=== PATIENT | male | born 1990 | race Caucasian/White ===

== ENCOUNTER 2017-10-06 01:43 | Emergency (ER) | payer SELFPAY ==
--- NOTE | 2017-10-06 01:50 | EDM.PDOC ---
ED HPI GENERAL MEDICAL PROBLEM - General Stated Complaint: MEDICAL CLEARANCE Time Seen by Provider: 10/06/17 01:48 - History of Present Illness INITIAL COMMENTS - FREE TEXT/NARRATIVE: HISTORY AND PHYSICAL: History of present illness: Patient is 27-year-old male presents in custody of law enforcement for medical clearance Review of systems: As per history of present illness and below otherwise all systems reviewed and negative. Past medical history: As per history of present illness and as reviewed below otherwise noncontributory. Surgical history: As per history of present illness and as reviewed below otherwise noncontributory. Social history: No reported history of drug or alcohol abuse. Family history: As per history of present illness and as reviewed below otherwise noncontributory. Physical exam: HEENT: Atraumatic, normocephalic, pupils reactive, negative for conjunctival pallor or scleral icterus, mucous membranes moist, throat clear, neck supple, nontender, trachea midline. Lungs: Clear to auscultation, breath sounds equal bilaterally, chest nontender. Heart: S1S2, regular, negative for clicks, rubs, or JVD. Abdomen: Soft, nondistended, nontender. Negative for masses or hepatosplenomegaly. Negative for costovertebral tenderness. Pelvis: Stable nontender. Genitourinary: Deferred. Rectal: Deferred. Extremities:, negative for cords or calf pain. Neurovascular unremarkable. Neuro: Awake, alert, oriented. Cranial nerves II through XII unremarkable. Cerebellum unremarkable. Motor and sensory unremarkable throughout. Exam nonfocal. Diagnostics: None Therapeutics: None Impression: #1 medically clear for incarceration Definitive disposition and diagnosis as appropriate pending reevaluation and review of above. - Related Data Allergies Allergy/AdvReac Type Severity Reaction Status Date / Time No Known Allergies Allergy Verified 10/06/17 01:49 Home Meds: Home Meds . [No Known Home Meds] 10/06/17 [History] ED ROS GENERAL - Review of Systems Review Of Systems: ROS reveals no pertinent complaints other than HPI. ED EXAM, GENERAL - Physical Exam Exam: See Below (See dictation) Departure - Departure Time of Disposition: 01:49 Disposition: Home, Self-Care 01 Condition: Good Clinical Impression: Medical clearance for incarceration - Discharge Information Referrals: PCP,None [Primary Care Provider] - Additional Instructions: The following information is given to patients seen in the emergency department who are being discharged to home. This information is to outline your options for follow-up care. We provide all patients seen in our emergency department with a follow-up referral. The need for follow-up, as well as the timing and circumstances, are variable depending upon the specifics of your emergency department visit. If you don't have a primary care physician on staff, we will provide you with a referral. We always advise you to contact your personal physician following an emergency department visit to inform them of the circumstance of the visit and for follow-up with them and/or the need for any referrals to a consulting specialist. The emergency department will also refer you to a specialist when appropriate. This referral assures that you have the opportunity for followup care with a specialist. All of these measure are taken in an effort to provide you with optimal care, which includes your followup. Under all circumstances we always encourage you to contact your private physician who remains a resource for coordinating your care. When calling for followup care, please make the office aware that this follow-up is from your recent emergency room visit. If for any reason you are refused follow-up, please contact the [facility] emergency department at and asked to speak to the emergency department charge nurse. Follow-up primary medical doctor 1-2 days return as needed as discussed
[2017-10-06] MEDS ORDERED: Octyl 2-Cyanoacrylate 1 Tube TOP ONE (01:51)
[2017-10-06] MEDS ORDERED: Octyl 2-Cyanoacrylate 1 Tube ONE (01:52)
== END 2017-10-06 02:01 | disposition home or self-care (01) ==
LOC: MW.ED 01:43
DX: Z02.89 Encounter for other administrative examinations (principal)
CPT/HCPCS: 99282; A9270; 99281

== ENCOUNTER 2018-03-09 17:46 | Emergency (ER) | payer OTHER ==
[2018-03-09] MEDS ORDERED: Ondansetron 4 MG/2 ML SDV IVPUSH ONE (18:13)
[2018-03-09] MEDS ORDERED: Ketorolac 30 MG/ML SDV IVPUSH ONE (18:13)
[2018-03-09] MEDS ORDERED: Sodium Chloride 0.9% 1,000 ML IV ONE (18:13)
--- NOTE | 2018-03-09 18:18 | EDM.PDOC ---
ED HPI GENERAL MEDICAL PROBLEM - General Chief Complaint: Abdominal Pain Stated Complaint: SPOKE TO NURSE Time Seen by Provider: 03/09/18 18:09 Source of Information: Reports: Patient History Limitations: Reports: No Limitations - History of Present Illness INITIAL COMMENTS - FREE TEXT/NARRATIVE: HISTORY AND PHYSICAL: History of present illness: Patient is a 27 year old male who presents to the emergency room with complaints of mid abdominal pain 4 hours. He states he has a sharp stabbing pain to his mid abdomen below the umbilicus. He states initially he had no nausea or vomiting but as I am assessing him he does have mild nausea. Prior to the sudden onset of abdominal pain he had been eating and drinking appropriately and felt well earlier this morning. He denies any fever, chills, chest pain, shortness of breath or cough. Denies any vomiting, diarrhea, constipation or dysuria. Denies any testicular pain, swelling or erythema. No concern of STDs. Review of systems: As per history of present illness and below otherwise all systems reviewed and negative. Past medical history: As per history of present illness and as reviewed below otherwise noncontributory. Surgical history: As per history of present illness and as reviewed below otherwise noncontributory. Social history: No reported history of drug or alcohol abuse. Family history: As per history of present illness and as reviewed below otherwise noncontributory. Physical exam: General: Well-developed and well-nourished 27 year old male. Alert and oriented. Nontoxic appearing and in no acute distress. HEENT: Atraumatic, normocephalic, pupils equal and reactive bilaterally, negative for conjunctival pallor or scleral icterus, mucous membranes moist, throat clear, neck supple, nontender, trachea midline. No drooling or trismus noted. No meningeal signs Lungs: Clear to auscultation, breath sounds equal bilaterally, chest nontender. Heart: S1S2, regular rate and rhythm without overt murmur Abdomen: Soft, nondistended, mild tenderness to the umbilicus. Negative for masses or hepatosplenomegaly. Negative for costovertebral tenderness. Pelvis: Stable nontender. Genitourinary: Deferred. Rectal: Deferred. Skin: Intact, warm, dry. No lesions or rashes noted. Extremities: Atraumatic, moves all extremities per self without difficulty or deficits, negative for cords or calf pain. Neurovascular unremarkable. Neuro: Awake, alert, oriented. Cranial nerves II through XII unremarkable. Cerebellum unremarkable. Motor and sensory unremarkable throughout. Exam nonfocal. Notes: CT shows that the appendix contains multiple small appendicoliths and is mildly dilated distally with possible early wall prominence. There is no inflammatory stranding around the appendix however. I did explain this to the patient and informed him that this could be early appendicitis. We discussed admission. He declines stating he would like to be discharged to home. He states his pain is a 1/10. We did review signs and symptoms that would prompt him to return to the emergency room. Patient voices understanding and is agreeable to plan of care. I did offer to prescribe Zofran for his nausea. He declined stating he hasn't had much nausea. I informed him that I did not want to give him a prescription for anything for pain at this time as I do not want to mask his symptoms if his abdominal pain should return. Denies any further questions or concerns at this time. Diagnostics: CBC, CMP, UA, amylase, lipase Therapeutics: IV fluid, Zofran, Toradol Prescription: None Impression: Abdominal pain Plan: 1. Small frequent sips of fluids to prevent dehydration. 2. Tylenol and ibuprofen as needed for pain management. 3. As we discussed your CT results were inconclusive. If your abdominal pain should worsen, nausea, fevers, chills, decreased appetite or any other symptoms that we reviewed should return or become bothersome - you need to return to the ED as we discussed. 4. Follow up with your primary care provider on Sunday. Return to the ED as needed as discussed. Definitive disposition and diagnosis as appropriate pending reevaluation and review of above. hypogastric Pain Score (Numeric/FACES): 10 - Related Data Allergies Allergy/AdvReac Type Severity Reaction Status Date / Time ibuprofen Allergy Swelling Verified 03/09/18 18:27 Home Meds: Home Meds . [No Known Home Meds] 10/06/17 [History] Past Medical History - Past Health History Medical/Surgical History: Denies Medical/Surgical History HEENT History: Reports: None Cardiovascular History: Reports: None Respiratory History: Reports: None Gastrointestinal History: Reports: None Genitourinary History: Reports: None Musculoskeletal History: Reports: None Neurological History: Reports: None Psychiatric History: Reports: None Endocrine/Metabolic History: Reports: None Hematologic History: Reports: None Immunologic History: Reports: None Oncologic (Cancer) History: Reports: None Dermatologic History: Reports: None - Infectious Disease History Infectious Disease History: Reports: None - Past Surgical History Head Surgeries/Procedures: Reports: None Social & Family History - Family History Family Medical History: Noncontributory - Tobacco Use Smoking Status *Q: Never Smoker - Recreational Drug Use Recreational Drug Use: No ED ROS GENERAL - Review of Systems Review Of Systems: ROS reveals no pertinent complaints other than HPI. ED EXAM, GI/ABD - Physical Exam Exam: See Below (See dictation) Course - Vital Signs Last Recorded V/S: Last Vital Signs Temp 97.5 F 03/09/18 19:56 Pulse 87 03/09/18 19:56 Resp 17 03/09/18 19:56 BP 115/74 03/09/18 19:56 Pulse Ox 98 03/09/18 19:56 - Orders/Labs/Meds Orders: Active Orders 24 hr Category Date Time Status Abdomen Pelvis w Cont [CT] Stat Exams 03/09/18 18:18 Taken Labs: Laboratory Tests 03/09/18 03/09/18 03/09/18 Range/Units 18:20 18:20 19:17 WBC 12.43 H (4.0-11.0) K/uL RBC 4.73 (4.50-5.90) M/uL Hgb 14.7 (13.0-17.0) g/dL Hct 42.7 (38.0-50.0) % MCV 90.3 (80.0-98.0) fL MCH 31.1 (27.0-32.0) pg MCHC 34.4 (31.0-37.0) g/dL RDW Std Deviation 41.9 (28.0-62.0) fl RDW Coeff of Kizzy 13 (11.0-15.0) % Plt Count 315 (150-400) K/uL MPV 10.40 (7.40-12.00) fL Neut % (Auto) 81.5 H (48.0-80.0) % Lymph % (Auto) 12.1 L (16.0-40.0) % [place] % (Auto) 6.0 (0.0-15.0) % Eos % (Auto) 0.2 (0.0-7.0) % Baso % (Auto) 0.2 (0.0-1.5) % Neut # (Auto) 10.1 H (1.4-5.7) K/uL Lymph # (Auto) 1.5 (0.6-2.4) K/uL [place] # (Auto) 0.8 (0.0-0.8) K/uL Eos # (Auto) 0.0 (0.0-0.7) K/uL Baso # (Auto) 0.0 (0.0-0.1) K/uL Nucleated RBC % 0.0 /100WBC Nucleated RBCs # 0 K/uL Sodium 137 (136-148) mmol/L Potassium 4.1 (3.5-5.1) mmol/L Chloride 101 (98-107) mmol/L Carbon Dioxide 28.5 (21.0-32.0) mmol/L BUN 15 (7.0-18.0) mg/dL Creatinine 1.0 (0.8-1.3) mg/dL Est Cr Clr Drug Dosing TNP Estimated GFR (MDRD) > 60.0 ml/min Glucose 94 (74-106) mg/dL Calcium 9.5 (8.5-10.1) mg/dL Total Bilirubin 0.4 (0.2-1.0) mg/dL AST 18 (15-37) IU/L ALT 23 (14-63) IU/L Alkaline Phosphatase 65 (46-116) U/L Total Protein 7.9 (6.4-8.2) g/dL Albumin 4.6 (3.4-5.0) g/dL Globulin 3.3 (2.0-3.5) g/dL Albumin/Globulin Ratio 1.4 (1.3-2.8) Amylase 98 (25-115) U/L Lipase 154 (73-393) U/L Urine Color YELLOW Urine Appearance CLEAR Urine pH 7.0 (5.0-8.0) Ur Specific [place] 1.020 (1.001-1.035) Urine Protein NEGATIVE (NEGATIVE) mg/dL Urine Glucose (UA) NEGATIVE (NEGATIVE) mg/dL Urine Ketones NEGATIVE (NEGATIVE) mg/dL Urine Occult Blood NEGATIVE (NEGATIVE) Urine Nitrite NEGATIVE (NEGATIVE) Urine Bilirubin NEGATIVE (NEGATIVE) Urine Urobilinogen 0.2 (<2.0) EU/dL Ur Leukocyte Esterase NEGATIVE (NEGATIVE) Urine RBC 0-1 (0-2/HPF) Urine WBC 0-1 (0-5/HPF) Ur Epithelial Cells RARE (NONE-FEW) Urine Bacteria FEW (NEGATIVE) Meds: Medications Discontinued Medications Generic Name Dose Route Start Last Admin Trade Name Kennyq PRN Reason Stop Dose Admin Sodium Chloride 1,000 mls @ 999 mls/hr 03/09/18 18:13 03/09/18 18:27 Normal Saline IV 03/09/18 19:13 999 mls/hr STAT ONE Administration Iopamidol 100 ml 03/09/18 19:45 Isovue Multipack-370 (76%) IVPUSH 03/09/18 19:46 ONETIME ONE Iopamidol 85 ml 03/09/18 19:51 03/09/18 19:51 Isovue Multipack-370 (76%) IVPUSH 03/09/18 19:52 85 ml ONETIME ONE Administration Ketorolac Tromethamine 30 mg 03/09/18 18:13 03/09/18 18:23 Toradol IVPUSH 03/09/18 18:14 30 mg ONETIME ONE Administration Morphine Sulfate 4 mg 03/09/18 18:53 03/09/18 19:01 Morphine IVPUSH 03/09/18 18:54 4 mg ONETIME ONE Administration Ondansetron HCl 4 mg 03/09/18 18:13 03/09/18 18:21 Zofran IVPUSH 03/09/18 18:14 4 mg ONETIME ONE Administration Departure - Departure Time of Disposition: 20:20 Disposition: Home, Self-Care 01 Clinical Impression: Abdominal pain Qualifiers: Abdominal location: lower abdomen, unspecified Qualified Code(s): R10.30 - Lower abdominal pain, unspecified - Discharge Information Instructions: Abdominal Pain, Adult, [id number] Referrals: PCP,None [Primary Care Provider] - Forms: ED Department Discharge Additional Instructions: The following information is given to patients seen in the emergency department who are being discharged to home. This information is to outline your options for follow-up care. We provide all patients seen in our emergency department with a follow-up referral. The need for follow-up, as well as the timing and circumstances, are variable depending upon the specifics of your emergency department visit. If you don't have a primary care physician on staff, we will provide you with a referral. We always advise you to contact your personal physician following an emergency department visit to inform them of the circumstance of the visit and for follow-up with them and/or the need for any referrals to a consulting specialist. The emergency department will also refer you to a specialist when appropriate. This referral assures that you have the opportunity for follow-up care with a specialist. All of these measure are taken in an effort to provide you with optimal care, which includes your follow-up. Under all circumstances we always encourage you to contact your private physician who remains a resource for coordinating your care. When calling for follow-up care, please make the office aware that this follow-up is from your recent emergency room visit. If for any reason you are refused follow-up, please contact the [facility] Emergency Department at and asked to speak to the emergency department charge nurse. [facility] [address] [place] [id number] 1. Small frequent sips of fluids to prevent dehydration. 2. Tylenol and ibuprofen as needed for pain management. 3. As we discussed, your CT results were inconclusive. If your abdominal pain should return, nausea, fevers, chills, decreased appetite or any other symptoms that we reviewed should return or become bothersome - you need to return to the ED as we discussed. 4. Follow up with your primary care provider on Sunday. Return to the ED as needed as discussed. - My Orders Last 24 Hours: My Active Orders 03/09/18 18:18 Abdomen Pelvis w Cont [CT] Stat - Assessment/Plan Last 24 Hours: My Active Orders 03/09/18 18:18 Abdomen Pelvis w Cont [CT] Stat
[2018-03-09] MEDS ORDERED: Morphine 2 MG/ML Syringe IVPUSH ONE (18:53)
[2018-03-09 18:56] LABS: CHLORIDE,CL 101 mmol/L (98-107); SODIUM,NA 137 mmol/L (136-148)
[2018-03-09] MEDS ORDERED: Iopamidol 755 MG/ML 200 ML Multipack Bottle IVPUSH ONE ×2 (19:45→19:51)
--- NOTE | 2018-03-11 13:37 | CT ---
EXAM DATE: 03/09/18 PATIENT'S AGE: 27 Patient: SHADIA ANDREWS Facility: [place], [place] Site . Site : 1990 Study: CT Abdomen/Pelvis W CONT [id number]/15/2018 7:42:59 PM Ordering Physician: Doctor Manzo Final Report: INDICATION: For 5 hours constant lower abdominal pain. TECHNIQUE: CT of abdomen pelvis performed after IV injection of 85 mL of Isovue-370. FINDINGS: No director talent acquisition view of the abdomen was sent for interpretation. Small cyst left hepatic lobe. Small lymph nodes in the abdominal retroperitoneum. Multiple small appendicoliths within the appendix. The distal appendix is mildly dilated and its wall may be slightly prominent however there is not definitive inflammatory soft tissue stranding about the appendix. The findings are not enough to suggest for diagnosis acute appendicitis by CT currently. If the patient`s pain is in the right pelvis or right lower quadrant or if it localizes to this area or worsens, repeat CT as early as later tonight or tomorrow could be performed to exclude appendicitis. Clinical and laboratory correlation would be suggested also. Remainder negative. IMPRESSION: 1. The appendix contains multiple small appendicoliths and is mildly dilated distally with possible mild early wall prominence. No inflammatory stranding around the appendix however. Clinical and laboratory correlation recommended. If the patient`s pain localizes to the right lower quadrant or becomes more severe, repeat CT as early as later tonight or tomorrow could be performed to ensure the findings are not related to early appendicitis with the findings not being prominent enough to suggest or diagnose by CT currently. Other findings as above. Please note that all CT scans at this facility use dose modulation, iterative reconstruction, and/or weight-based dosing when appropriate to reduce radiation dose to as low as reasonably achievable. Dictated by Hermilo Vasquez MD @ Mar 09 2018 8:02PM (Electronic Signature) Report Signed by Proxy. MAINE
== END 2018-03-09 20:40 | disposition home or self-care (01) ==
LOC: MW.ED 17:46
DX: R10.30 Lower abdominal pain, unspecified (principal); Z88.8 Allergy status to other drugs, medicaments and biological substances
CPT/HCPCS: 36415; 74177; 80053; 81001; 82150; 83690; 85025; 96361; 96374; 96375; 99284; J1885; J2270; J2405; J7040; Q9967

== ENCOUNTER 2018-03-10 05:32 | Observation (INO) | payer OTHER ==
--- NOTE | 2018-03-10 05:41 | EDM.PDOC ---
ED HPI GENERAL MEDICAL PROBLEM - General Stated Complaint: STOMACH PAINS Time Seen by Provider: 03/10/18 05:36 - History of Present Illness INITIAL COMMENTS - FREE TEXT/NARRATIVE: HISTORY AND PHYSICAL: History of present illness: The patient is a 27 y/o male who was seen here earlier this evening with complaints of mid abdominal pain for 4 hours associated with some nausea but no vomiting or diarrhea. On that ED visit he had a full lab workup with CBC CMP amylase lipase as well as the CT scan of his abdomen and pelvis. His white cell count was mildly elevated at 12.43 but the remainder of his lab tests were normal and a CT scan indicated the appendix had multiple small appendicoliths and was mildly dilated distally with possible early wall prominence. There was no inflammatory stranding around the appendix so it was not felt that this was acute appendicitis by CT. The test results were discussed with the patient and he was offered observation admission and he declined at the time. He said that he felt improved with the medications he was given. He also refused any nausea meds prior to discharge. The patient says that when he left here he did feel much improved and then he got home and last had some juice around 11 PM but did not eat any solids. He did not have much of an appetite. He says the pain returned several hours after he went home and he has been tossing and turning with the discomfort but has not had a fever vomiting or diarrhea. Says he cannot get comfortable. His last bowel movement was yesterday and it was normal. He says that the pain is now more on the right lower quadrant area and when he presented to triage he was hunched over due to the discomfort. The patient says that this is significantly different than when he left and even when he first presented earlier on his first visit. She denies any pain in the testicles and no flank pain and no back pain or urinary complaints. Nursing who cared for him at the end of his last ED visit is also here in the ED with me now and says that his presentation is significantly different than when she was caring for him prior to discharge earlier this evening. Review of systems: As per history of present illness and below otherwise all systems reviewed and negative. Past medical history: As per history of present illness and as reviewed below otherwise noncontributory. Surgical history: As per history of present illness and as reviewed below otherwise noncontributory. Social history: No reported history of drug or alcohol abuse. Family history: As per history of present illness and as reviewed below otherwise noncontributory. Physical exam: general: Well-developed well-nourished man who is nontoxic and looks uncomfortable in the ED. I saw him as he was registering in triage and he was bent over the desk due to discomfort. He has difficulty with the exam due to the discomfort he is in. Vital signs noted by me HEENT: Atraumatic, normocephalic, , negative for conjunctival pallor or scleral icterus, mucous membranes moist, throat clear, neck supple, nontender, trachea midline. Lungs: Clear to auscultation, breath sounds equal bilaterally, chest nontender. Heart: S1S2, regular rate and rhythm no overt murmurs Abdomen: Soft, nondistended, bowel sounds are very hypoactive. Negative for masses or hepatosplenomegaly. Patient has diffuse abdominal tenderness more localized in the right lower quadrant where he does have some voluntary guarding and some rebound. He does exhibit Rovsing sign as well as a positive obturator sign. He has no left upper or left lower quadrant tenderness specifically in those regions. Pelvis: Stable nontender. Genitourinary: Deferred. Rectal: Deferred. Extremities: Atraumatic, full range of motion without defects or deficits Neurovascular unremarkable. Neuro: Awake, alert, oriented. Cranial nerves II through XII unremarkable. Cerebellum unremarkable. Motor and sensory unremarkable throughout. Exam nonfocal. Diagnostics: CBC CMP lipase H. pylori Therapeutics: IV fluids Zofran Toradol morphine Zosyn [id number]: Case was discussed with Dr. Quintanilla who would like the patient to be admitted to the hospital with lactated Ringer's IV fluid maintenance and Zosyn to be given. She will come and see the patient later this morning and evaluate for probable surgery for appendectomy. The patient is aware of this conversation and the care plan and is agreeable. He says his pain is much improved after the medications but is not completely gone and every time he moves or coughs he feels the pain is worse Impression: Recurrent persistent abdominal pain, probable appendicitis Definitive disposition and diagnosis as appropriate pending reevaluation and review of above. abdominal Pain Score (Numeric/FACES): 10 - Related Data Allergies Allergy/AdvReac Type Severity Reaction Status Date / Time ibuprofen Allergy Swelling Verified 03/09/18 18:27 soda pamela Allergy Hives Uncoded 03/10/18 05:44 Home Meds: Home Meds . [No Known Home Meds] 10/06/17 [History] Past Medical History - Past Health History Medical/Surgical History: Denies Medical/Surgical History HEENT History: Reports: None Cardiovascular History: Reports: None Respiratory History: Reports: None Gastrointestinal History: Reports: None Genitourinary History: Reports: None Musculoskeletal History: Reports: None Neurological History: Reports: None Psychiatric History: Reports: None Endocrine/Metabolic History: Reports: None Hematologic History: Reports: None Immunologic History: Reports: None Oncologic (Cancer) History: Reports: None Dermatologic History: Reports: None - Infectious Disease History Infectious Disease History: Reports: None - Past Surgical History Head Surgeries/Procedures: Reports: None Social & Family History - Family History Family Medical History: Noncontributory ED ROS GENERAL - Review of Systems Review Of Systems: ROS reveals no pertinent complaints other than HPI. ED EXAM, GENERAL - Physical Exam Exam: See Below (See dictation) Course - Vital Signs Last Recorded V/S: Last Vital Signs Temp 36.5 C 03/10/18 06:15 Pulse 72 03/10/18 06:15 Resp 18 03/10/18 06:15 BP 135/78 03/10/18 06:15 Pulse Ox 98 03/10/18 06:15 - Orders/Labs/Meds Orders: Active Orders 24 hr Category Date Time Status Patient Status [ADT] Stat ADT 03/10/18 06:22 Ordered COMPREHENSIVE METABOLIC PN,CMP [CHEM] Stat Lab 03/10/18 05:45 Received HELICOBACTER PYLORI AB IGG [CHEM] Stat Lab 03/10/18 05:45 Received LIPASE [CHEM] Stat Lab 03/10/18 05:45 Received Lactated Ringers @ 125 MLS/HR(1,000ml) Med 03/10/18 06:30 Ordered Lactated Ringers [Ringers, Lactated] 1,000 ml IV ASDIRECTED Piperacillin/Tazobactam [Piperacil-Tazobact] 3.375 gm Med 03/10/18 06:22 Ordered Sodium Chloride 0.9% [Normal Saline] 50 ml IV ONETIME Sodium Chloride 0.9% [Normal Saline] 1,000 ml Med 03/10/18 05:42 Active IV STAT Sodium Chloride 0.9% [Saline Flush] Med 03/10/18 05:42 Active 10 ml FLUSH ASDIRECTED PRN Sodium Chloride 0.9% [Saline Flush] Med 03/10/18 05:42 Active 2.5 ml FLUSH ASDIRECTED PRN Saline Lock Insert [OM.PC] Stat Oth 03/10/18 05:41 Ordered Medication Orders Sodium Chloride (Normal Saline) 1,000 mls @ 999 mls/hr IV STAT ONE Stop: 03/10/18 06:42 Last Admin: 03/10/18 05:50 Dose: 999 mls/hr Lactated Ringer's (Ringers, Lactated) 1,000 mls @ 125 mls/hr IV ASDIRECTED ROBERT Piperacillin Sod/Tazobactam (Sod 3.375 gm/ Sodium Chloride) 50 mls @ 100 mls/ hr IV ONETIME ONE Stop: 03/10/18 06:51 Sodium Chloride (Saline Flush) 10 ml FLUSH ASDIRECTED PRN PRN Reason: Keep Vein Open Sodium Chloride (Saline Flush) 2.5 ml FLUSH ASDIRECTED PRN PRN Reason: Keep Vein Open Labs: Laboratory Tests 03/10/18 03/10/18 Range/Units 05:45 05:45 WBC 13.97 H (4.0-11.0) K/uL RBC 4.88 (4.50-5.90) M/uL Hgb 15.0 (13.0-17.0) g/dL Hct 43.2 (38.0-50.0) % MCV 88.5 (80.0-98.0) fL MCH 30.7 (27.0-32.0) pg MCHC 34.7 (31.0-37.0) g/dL RDW Std Deviation 40.8 (28.0-62.0) fl RDW Coeff of Kizzy 13 (11.0-15.0) % Plt Count 207 (150-400) K/uL MPV 10.50 (7.40-12.00) fL Neut % (Auto) 79.3 (48.0-80.0) % Lymph % (Auto) 11.0 L (16.0-40.0) % Ward % (Auto) 9.2 (0.0-15.0) % Eos % (Auto) 0.4 (0.0-7.0) % Baso % (Auto) 0.1 (0.0-1.5) % Neut # (Auto) 11.1 H (1.4-5.7) K/uL Lymph # (Auto) 1.5 (0.6-2.4) K/uL Ward # (Auto) 1.3 H (0.0-0.8) K/uL Eos # (Auto) 0.1 (0.0-0.7) K/uL Baso # (Auto) 0.0 (0.0-0.1) K/uL Nucleated RBC % 0.0 /100WBC Nucleated RBCs # 0 K/uL Lactate 1.9 (0.20-2.00) mmol/L Meds: Medications Generic Name Dose Route Start Last Admin Trade Name Freq PRN Reason Stop Dose Admin Sodium Chloride 1,000 mls @ 999 mls/hr 03/10/18 05:42 03/10/18 05:50 Normal Saline IV 03/10/18 06:42 999 mls/hr STAT ONE Administration Lactated Ringer's 1,000 mls @ 125 mls/hr 03/10/18 06:30 Ringers, Lactated IV ASDIRECTED ROBERT Piperacillin Sod/Tazobactam 50 mls @ 100 mls/hr 03/10/18 06:22 Sod 3.375 gm/ Sodium Chloride IV 03/10/18 06:51 ONETIME ONE Sodium Chloride 10 ml 03/10/18 05:42 Saline Flush FLUSH ASDIRECTED PRN Keep Vein Open Sodium Chloride 2.5 ml 03/10/18 05:42 Saline Flush FLUSH ASDIRECTED PRN Keep Vein Open Discontinued Medications Generic Name Dose Route Start Last Admin Trade Name Freq PRN Reason Stop Dose Admin Ketorolac Tromethamine 30 mg 03/10/18 05:42 03/10/18 05:57 Toradol IVPUSH 03/10/18 05:43 30 mg ONETIME ONE Administration Morphine Sulfate 4 mg 03/10/18 05:42 03/10/18 05:57 Morphine IVPUSH 03/10/18 05:43 4 mg ONETIME ONE Administration Ondansetron HCl 4 mg 03/10/18 05:42 03/10/18 05:57 Zofran IVPUSH 03/10/18 05:43 4 mg ONETIME ONE Administration Departure - Departure Time of Disposition: 06:26 Disposition: Refer to Observation Condition: Good Clinical Impression: Abdominal pain Qualifiers: Abdominal location: right lower quadrant Qualified Code(s): R10.31 - Right lower quadrant pain Appendicitis Qualifiers: Appendicitis type: unspecified Qualified Code(s): K37 - Unspecified appendicitis - Discharge Information Referrals: PCP,None [Primary Care Provider] - - My Orders Last 24 Hours: My Active Orders 03/10/18 05:41 Saline Lock Insert [OM.PC] Stat 03/10/18 05:42 Sodium Chloride 0.9% [Normal Saline] 1,000 ml IV STAT Sodium Chloride 0.9% [Saline Flush] 10 ml FLUSH ASDIRECTED PRN Sodium Chloride 0.9% [Saline Flush] 2.5 ml FLUSH ASDIRECTED PRN 03/10/18 05:45 COMPREHENSIVE METABOLIC PN,CMP [CHEM] Stat HELICOBACTER PYLORI AB IGG [CHEM] Stat LIPASE [CHEM] Stat 03/10/18 06:22 Patient Status [ADT] Stat Piperacillin/Tazobactam [Piperacil-Tazobact] 3.375 gm Sodium Chloride 0.9% [ Normal Saline] 50 ml IV ONETIME 03/10/18 06:30 Lactated Ringers @ 125 MLS/HR(1,000ml) Lactated Ringers [Ringers, Lactated] 1, 000 ml IV ASDIRECTED - Assessment/Plan Last 24 Hours: My Active Orders 03/10/18 05:41 Saline Lock Insert [OM.PC] Stat 03/10/18 05:42 Sodium Chloride 0.9% [Normal Saline] 1,000 ml IV STAT Sodium Chloride 0.9% [Saline Flush] 10 ml FLUSH ASDIRECTED PRN Sodium Chloride 0.9% [Saline Flush] 2.5 ml FLUSH ASDIRECTED PRN 03/10/18 05:45 COMPREHENSIVE METABOLIC PN,CMP [CHEM] Stat HELICOBACTER PYLORI AB IGG [CHEM] Stat LIPASE [CHEM] Stat 03/10/18 06:22 Patient Status [ADT] Stat Piperacillin/Tazobactam [Piperacil-Tazobact] 3.375 gm Sodium Chloride 0.9% [ Normal Saline] 50 ml IV ONETIME 03/10/18 06:30 Lactated Ringers @ 125 MLS/HR(1,000ml) Lactated Ringers [Ringers, Lactated] 1, 000 ml IV ASDIRECTED
[2018-03-10] MEDS ORDERED: Ondansetron 4 MG/2 ML SDV IVPUSH ONE (05:42)
[2018-03-10] MEDS ORDERED: Morphine 2 MG/ML Syringe IVPUSH ONE (05:42)
[2018-03-10] MEDS ORDERED: Sodium Chloride 0.9% 2.5 ML Syringe FLUSH PRN (05:42)
[2018-03-10] MEDS ORDERED: Ketorolac 30 MG/ML SDV IVPUSH ONE (05:42)
[2018-03-10] MEDS ORDERED: Sodium Chloride 0.9% 1,000 ML IV ONE (05:42)
[2018-03-10] MEDS ORDERED: Sodium Chloride 0.9% 10 ML Syringe FLUSH PRN (05:42)
[2018-03-10] MEDS ORDERED: Piperacillin/Tazobactam 3.375 GM in Sodium Chloride 0.9% 50 ML IV ONE ×2 (06:22→15:00)
[2018-03-10 06:27] LABS: CHLORIDE,CL 102 mmol/L (98-107); SODIUM,NA 137 mmol/L (136-148)
[2018-03-10] MEDS ORDERED: HYDROmorphone 1 MG/ML Syringe IVPUSH ONE (06:47)
[2018-03-10] MEDS: Lactated Ringers 1,000 ML IV SCH ×2 (07:28→15:29)
[2018-03-10] MEDS ORDERED: Ondansetron 4 MG/2 ML SDV IVPUSH PRN (08:57)
--- NOTE | 2018-03-10 09:05 | PCM.HP ---
H&P History of Present Illness - General Date of Service: 03/10/18 Admit Problem/Dx: Admission Diagnosis/Problem Admission Diagnosis/Problem Abdominal pain Source of Information: Patient History Limitations: Reports: No Limitations - History of Present Illness Initial Comments - Free Text/Narative: Patient is a 27 year old male who developed generalized abdominal pain last evening associated with malaise and nausea. He presented to the ED. His WBC was normal. CT scan of the abdomen showed appendicoliths in the appendix but no gross enlargement or inflammation. He was given the option to be observed overnight or go home. He received pain medication and felt better so he went home. Several hours later his pain became more severe and migrated to the RLQ. The patient represented to the ER. He had a WBC now of 13.5K with RLQ rebound and guarding. He last ate yesterday. abdominal Pain Score (Numeric/FACES): 6 - Related Data Allergies/Adverse Reactions: Allergies Allergy/AdvReac Type Severity Reaction Status Date / Time ibuprofen Allergy Swelling Verified 03/09/18 18:27 soda pamela Allergy Hives Uncoded 03/10/18 05:44 Home Medications: Home Meds . [No Known Home Meds] 10/06/17 [History] Past Medical History - Past Health History Medical/Surgical History: Denies Medical/Surgical History HEENT History: Reports: None Cardiovascular History: Reports: None Respiratory History: Reports: None Other Respiratory History: recent occasional episodes of SOB and coughing but never diagnosed with any respiratory issues Gastrointestinal History: Reports: None Genitourinary History: Reports: None Musculoskeletal History: Reports: None Neurological History: Reports: None Psychiatric History: Reports: None Endocrine/Metabolic History: Reports: None Hematologic History: Reports: None Immunologic History: Reports: None Oncologic (Cancer) History: Reports: None Dermatologic History: Reports: None - Infectious Disease History Infectious Disease History: Reports: Chicken Pox - Past Surgical History Head Surgeries/Procedures: Reports: None Social & Family History - Family History Family Medical History: Noncontributory - Tobacco Use Smoking Status *Q: Never Smoker Second Hand Smoke Exposure: No - Caffeine Use Caffeine Use: Reports: Coffee, Energy Drinks - Recreational Drug Use Recreational Drug Use: No H&P Review of Systems - Review of Systems: Review Of Systems: ROS reveals no pertinent complaints other than HPI. Exam - Exam Exam: See Below - Vital Signs Vital Signs: Last Vital Signs Temp 37.0 C 03/10/18 08:00 Pulse 75 03/10/18 08:00 Resp 22 H 03/10/18 08:00 BP 132/79 03/10/18 08:00 Pulse Ox 96 03/10/18 08:00 Weight: 82.27 kg - Exam General: Alert, Oriented, Mild Distress HEENT: Conjunctiva Clear, Mucosa Moist & [place], Posterior Pharynx Clear Lungs: Clear to Auscultation, Normal Respiratory Effort Cardiovascular: Regular Rate, Regular Rhythm GI/Abdominal Exam: Soft, No Distention, Guarding (RLQ), Rebound (RLQ), Tender ( RLQ) Back Exam: Normal Inspection Extremities: Normal Inspection, Normal Range of Motion - Patient Data Lab Results Last 24 hrs: Laboratory Results - last 24 hr 03/10/18 03/10/18 03/10/18 Range/Units 05:45 05:45 05:45 WBC 13.97 H (4.0-11.0) K/uL RBC 4.88 (4.50-5.90) M/uL Hgb 15.0 (13.0-17.0) g/dL Hct 43.2 (38.0-50.0) % MCV 88.5 (80.0-98.0) fL MCH 30.7 (27.0-32.0) pg MCHC 34.7 (31.0-37.0) g/dL RDW Std Deviation 40.8 (28.0-62.0) fl RDW Coeff of Kizzy 13 (11.0-15.0) % Plt Count 207 (150-400) K/uL MPV 10.50 (7.40-12.00) fL Neut % (Auto) 79.3 (48.0-80.0) % Lymph % (Auto) 11.0 L (16.0-40.0) % [place] % (Auto) 9.2 (0.0-15.0) % Eos % (Auto) 0.4 (0.0-7.0) % Baso % (Auto) 0.1 (0.0-1.5) % Neut # (Auto) 11.1 H (1.4-5.7) K/uL Lymph # (Auto) 1.5 (0.6-2.4) K/uL [place]verse # (Auto) 1.3 H (0.0-0.8) K/uL Eos # (Auto) 0.1 (0.0-0.7) K/uL Baso # (Auto) 0.0 (0.0-0.1) K/uL Nucleated RBC % 0.0 /100WBC Nucleated RBCs # 0 K/uL Lactate 1.9 (0.20-2.00) mmol/L Sodium 137 (136-148) mmol/L Potassium 4.3 (3.5-5.1) mmol/L Chloride 102 (98-107) mmol/L Carbon Dioxide 25.0 (21.0-32.0) mmol/L BUN 11 (7.0-18.0) mg/dL Creatinine 1.0 (0.8-1.3) mg/dL Est Cr Clr Drug Dosing 122.87 mL/min Estimated GFR (MDRD) > 60.0 ml/min Glucose 101 (74-106) mg/dL Calcium 9.5 (8.5-10.1) mg/dL Total Bilirubin 0.9 (0.2-1.0) mg/dL AST 19 (15-37) IU/L ALT 22 (14-63) IU/L Alkaline Phosphatase 71 (46-116) U/L Total Protein 7.5 (6.4-8.2) g/dL Albumin 4.3 (3.4-5.0) g/dL Globulin 3.2 (2.0-3.5) g/dL Albumin/Globulin Ratio 1.3 (1.3-2.8) Lipase 85 (73-393) U/L H. pylori IgG Antibody (NEG) 03/10/18 Range/Units 05:45 WBC (4.0-11.0) K/uL RBC (4.50-5.90) M/uL Hgb (13.0-17.0) g/dL Hct (38.0-50.0) % MCV (80.0-98.0) fL MCH (27.0-32.0) pg MCHC (31.0-37.0) g/dL RDW Std Deviation (28.0-62.0) fl RDW Coeff of Kizzy (11.0-15.0) % Plt Count (150-400) K/uL MPV (7.40-12.00) fL Neut % (Auto) (48.0-80.0) % Lymph % (Auto) (16.0-40.0) % Traverse % (Auto) (0.0-15.0) % Eos % (Auto) (0.0-7.0) % Baso % (Auto) (0.0-1.5) % Neut # (Auto) (1.4-5.7) K/uL Lymph # (Auto) (0.6-2.4) K/uL Traverse # (Auto) (0.0-0.8) K/uL Eos # (Auto) (0.0-0.7) K/uL Baso # (Auto) (0.0-0.1) K/uL Nucleated RBC % /100WBC Nucleated RBCs # K/uL Lactate (0.20-2.00) mmol/L Sodium (136-148) mmol/L Potassium (3.5-5.1) mmol/L Chloride (98-107) mmol/L Carbon Dioxide (21.0-32.0) mmol/L BUN (7.0-18.0) mg/dL Creatinine (0.8-1.3) mg/dL Est Cr Clr Drug Dosing mL/min Estimated GFR (MDRD) ml/min Glucose (74-106) mg/dL Calcium (8.5-10.1) mg/dL Total Bilirubin (0.2-1.0) mg/dL AST (15-37) IU/L ALT (14-63) IU/L Alkaline Phosphatase (46-116) U/L Total Protein (6.4-8.2) g/dL Albumin (3.4-5.0) g/dL Globulin (2.0-3.5) g/dL Albumin/Globulin Ratio (1.3-2.8) Lipase (73-393) U/L H. pylori IgG Antibody NEGATIVE (NEG) Result Diagrams: 03/10/18 05:45 03/10/18 05:45 - Problem List (1) Appendicitis SNOMED Code(s): 93759281 ICD Code: K37 - UNSPECIFIED APPENDICITIS Status: Acute Current Visit: Yes Qualifiers: Appendicitis type: unspecified Qualified Code(s): K37 - Unspecified appendicitis Problem List Initiated/Reviewed/Updated: Yes Orders Last 24hrs: Active Orders 24 hr Category Date Time Status Patient Status [ADT] Stat ADT 03/10/18 06:22 Active Influenza Vaccine Charge [RC] .DISCHARGE Care 03/10/18 08:58 Active HYDROmorphone [Dilaudid] Med 03/10/18 08:56 Ordered 0.5 mg IVPUSH Q1H PRN Lactated Ringers [Ringers, Lactated] 1,000 ml Med 03/10/18 06:30 Active IV ASDIRECTED Ondansetron [Zofran] Med 03/10/18 08:57 Ordered 4 mg IVPUSH Q6H PRN Pharmacy to Dose [Pharmacy to Dose - InFluenza Vaccine] Med 03/10/18 08:58 Once 1 each IM ONETIME ONE Sodium Chloride 0.9% [Saline Flush] Med 03/10/18 05:42 Active 10 ml FLUSH ASDIRECTED PRN Sodium Chloride 0.9% [Saline Flush] Med 03/10/18 05:42 Active 2.5 ml FLUSH ASDIRECTED PRN Saline Lock Insert [OM.PC] Stat Oth 03/10/18 05:41 Ordered Medication Orders Hydromorphone HCl (Dilaudid) 0.5 mg IVPUSH Q1H PRN PRN Reason: Pain Lactated Ringer's (Ringers, Lactated) 1,000 mls @ 125 mls/hr IV ASDIRECTED ROBERT Last Admin: 03/10/18 07:28 Dose: 125 mls/hr Ondansetron HCl (Zofran) 4 mg IVPUSH Q6H PRN PRN Reason: Nausea/Vomiting Sodium Chloride (Saline Flush) 10 ml FLUSH ASDIRECTED PRN PRN Reason: Keep Vein Open Sodium Chloride (Saline Flush) 2.5 ml FLUSH ASDIRECTED PRN PRN Reason: Keep Vein Open Assessment/Plan Comment:: Patient is a 27 year old male with acute appendicitis. I explained the pathophysiology of the disease. We discussed the need for an appendectomy. I explained but the open and laparoscopic approaches. I will attempt this laparoscopically but should I be unable to perform this safely I will convert to open. We discussed the expected perioperative course as well as the risks including bleeding infection or damage to surrounding structures. The patient verbalized understanding and wishes to proceed.
[2018-03-10] MEDS: HYDROmorphone 1 MG/ML Syringe IVPUSH PRN ×5 (09:07→18:57)
[2018-03-10] MEDS ORDERED: Propofol 200 MG/20 ML SDV ONE (09:36)
[2018-03-10] MEDS ORDERED: fentaNYL 250 MCG/5 ML SDV ONE (09:36)
[2018-03-10] MEDS ORDERED: Midazolam 1 MG/ML 2 ML SDV ONE (09:36)
[2018-03-10] MEDS ORDERED: Bupivacaine 0.5% 30 ML SDV ONE (09:40)
[2018-03-10] MEDS ORDERED: Ondansetron 4 MG/2 ML SDV ONE (09:41)
[2018-03-10] MEDS ORDERED: Rocuronium 10 MG/ML 10 ML Syringe ONE (09:41)
[2018-03-10] MEDS ORDERED: Succinylcholine 200 MG/10 ML MDV ONE (09:41)
--- NOTE | 2018-03-10 09:52 | PCM.PREANE ---
Preanesthetic Assessment - Anesthesia/Transfusion/Family Hx Anesthesia History: No Prior Anesthesia Family History of Anesthesia Reaction: No Transfusion History: No Prior Transfusion(s) Intubation History: Unknown - Review of Systems General: Appetite Pulmonary: No Symptoms Cardiovascular: No Symptoms Gastrointestinal: Abdominal Pain, Decreased Appetite, Nausea Neurological: No Symptoms - Physical Assessment NPO Status Date: 03/10/18 (2400) O2 Sat by Pulse Oximetry: 96 Respiratory Rate: 22 Vital Signs: Last Vital Signs Temp 98.6 F 03/10/18 08:00 Pulse 75 03/10/18 08:00 Resp 22 H 03/10/18 08:00 BP 132/79 03/10/18 08:00 Pulse Ox 96 03/10/18 08:00 Height: 6 ft Weight: 82.27 kg ASA Class: 1E Mental Status: Alert & Oriented x3 Airway Class: Mallampati = 2 Dentition: Reports: Normal Dentition Thyro-Mental Finger Breadths: 3 Mouth Opening Finger Breadths: 3 ROM/Head Extension: Full Lungs: Clear to Auscultation, Normal Respiratory Effort Cardiovascular: Regular Rate, Regular Rhythm - Lab Values: Laboratory Last Values WBC 13.97 K/uL (4.0-11.0) H 03/10/18 05:45 RBC 4.88 M/uL (4.50-5.90) 03/10/18 05:45 Hgb 15.0 g/dL (13.0-17.0) 03/10/18 05:45 Hct 43.2 % (38.0-50.0) 03/10/18 05:45 MCV 88.5 fL (80.0-98.0) 03/10/18 05:45 MCH 30.7 pg (27.0-32.0) 03/10/18 05:45 MCHC 34.7 g/dL (31.0-37.0) 03/10/18 05:45 RDW Std Deviation 40.8 fl (28.0-62.0) 03/10/18 05:45 RDW Coeff of Kizzy 13 % (11.0-15.0) 03/10/18 05:45 Plt Count 207 K/uL (150-400) 03/10/18 05:45 MPV 10.50 fL (7.40-12.00) 03/10/18 05:45 Neut % (Auto) 79.3 % (48.0-80.0) 03/10/18 05:45 Lymph % (Auto) 11.0 % (16.0-40.0) L 03/10/18 05:45 [place] % (Auto) 9.2 % (0.0-15.0) 03/10/18 05:45 Eos % (Auto) 0.4 % (0.0-7.0) 03/10/18 05:45 Baso % (Auto) 0.1 % (0.0-1.5) 03/10/18 05:45 Neut # (Auto) 11.1 K/uL (1.4-5.7) H 03/10/18 05:45 Lymph # (Auto) 1.5 K/uL (0.6-2.4) 03/10/18 05:45 [place] # (Auto) 1.3 K/uL (0.0-0.8) H 03/10/18 05:45 Eos # (Auto) 0.1 K/uL (0.0-0.7) 03/10/18 05:45 Baso # (Auto) 0.0 K/uL (0.0-0.1) 03/10/18 05:45 Nucleated RBC % 0.0 /100WBC 03/10/18 05:45 Nucleated RBCs # 0 K/uL 03/10/18 05:45 Lactate 1.9 mmol/L (0.20-2.00) 03/10/18 05:45 Sodium 137 mmol/L (136-148) 03/10/18 05:45 Potassium 4.3 mmol/L (3.5-5.1) 03/10/18 05:45 Chloride 102 mmol/L (98-107) 03/10/18 05:45 Carbon Dioxide 25.0 mmol/L (21.0-32.0) 03/10/18 05:45 BUN 11 mg/dL (7.0-18.0) 03/10/18 05:45 Creatinine 1.0 mg/dL (0.8-1.3) 03/10/18 05:45 Est Cr Clr Drug Dosing 122.87 mL/min 03/10/18 05:45 Estimated GFR (MDRD) > 60.0 ml/min 03/10/18 05:45 Glucose 101 mg/dL (74-106) 03/10/18 05:45 Calcium 9.5 mg/dL (8.5-10.1) 03/10/18 05:45 Total Bilirubin 0.9 mg/dL (0.2-1.0) 03/10/18 05:45 AST 19 IU/L (15-37) 03/10/18 05:45 ALT 22 IU/L (14-63) 03/10/18 05:45 Alkaline Phosphatase 71 U/L (46-116) 03/10/18 05:45 Total Protein 7.5 g/dL (6.4-8.2) 03/10/18 05:45 Albumin 4.3 g/dL (3.4-5.0) 03/10/18 05:45 Globulin 3.2 g/dL (2.0-3.5) 03/10/18 05:45 Albumin/Globulin Ratio 1.3 (1.3-2.8) 03/10/18 05:45 Lipase 85 U/L (73-393) 03/10/18 05:45 H. pylori IgG Antibody NEGATIVE (NEG) 03/10/18 05:45 - Allergies Allergies/Adverse Reactions: Allergies Allergy/AdvReac Type Severity Reaction Status Date / Time ibuprofen Allergy Swelling Verified 03/09/18 18:27 soda pamela Allergy Hives Uncoded 03/10/18 05:44 - Blood Blood Available: No - Acknowledgements Anesthesia Type Planned: General Anesthesia Pt an Appropriate Candidate for the Planned Anesthesia: Yes Alternatives and Risks of Anesthesia Discussed w Pt/Guardian: Yes Pt/Guardian Understands and Agrees with Anesthesia Plan: Yes PreAnesthesia Questionnaire - Past Health History Medical/Surgical History: Denies Medical/Surgical History HEENT History: Reports: None Cardiovascular History: Reports: None Respiratory History: Reports: None Other Respiratory History: recent occasional episodes of SOB and coughing but never diagnosed with any respiratory issues Gastrointestinal History: Reports: None Genitourinary History: Reports: None Musculoskeletal History: Reports: None Neurological History: Reports: None Psychiatric History: Reports: None Endocrine/Metabolic History: Reports: None Hematologic History: Reports: None Immunologic History: Reports: None Oncologic (Cancer) History: Reports: None Dermatologic History: Reports: None - Infectious Disease History Infectious Disease History: Reports: Chicken Pox - Past Surgical History Head Surgeries/Procedures: Reports: None - SUBSTANCE USE Smoking Status *Q: Never Smoker Second Hand Smoke Exposure: No Recreational Drug Use History: No - HOME MEDS Home Medications: Home Meds . [No Known Home Meds] 10/06/17 [History] - CURRENT (IN HOUSE) MEDS Current Meds: Current Medications Hydromorphone HCl (Dilaudid) 0.5 mg IVPUSH Q1H PRN PRN Reason: Pain Last Admin: 03/10/18 09:07 Dose: 0.5 mg Lactated Ringer's (Ringers, Lactated) 1,000 mls @ 125 mls/hr IV ASDIRECTED ROBERT Last Admin: 03/10/18 07:28 Dose: 125 mls/hr Ondansetron HCl (Zofran) 4 mg IVPUSH Q6H PRN PRN Reason: Nausea/Vomiting Sodium Chloride (Saline Flush) 10 ml FLUSH ASDIRECTED PRN PRN Reason: Keep Vein Open Sodium Chloride (Saline Flush) 2.5 ml FLUSH ASDIRECTED PRN PRN Reason: Keep Vein Open Discontinued Medications Bupivacaine HCl (Marcaine 0.5%) Confirm Administered Dose 30 ml .ROUTE .STK-MED ONE Stop: 03/10/18 09:41 Fentanyl (Sublimaze) Confirm Administered Dose 250 mcg .ROUTE .STK-MED ONE Stop: 03/10/18 09:37 Hydromorphone HCl (Dilaudid) 1 mg IVPUSH ONETIME ONE Stop: 03/10/18 06:48 Last Admin: 03/10/18 06:52 Dose: 1 mg Sodium Chloride (Normal Saline) 1,000 mls @ 999 mls/hr IV STAT ONE Stop: 03/10/18 06:42 Last Admin: 03/10/18 05:50 Dose: 999 mls/hr Piperacillin Sod/Tazobactam (Sod 3.375 gm/ Sodium Chloride) 50 mls @ 100 mls/ hr IV ONETIME ONE Stop: 03/10/18 06:51 Last Admin: 03/10/18 06:39 Dose: 100 mls/hr Lidocaine HCl (Xylocaine-Mpf 1%) Confirm Administered Dose 5 mls @ as directed .ROUTE .STK-MED ONE Stop: 03/10/18 09:43 Ketorolac Tromethamine (Toradol) 30 mg IVPUSH ONETIME ONE Stop: 03/10/18 05:43 Last Admin: 03/10/18 05:57 Dose: 30 mg Midazolam HCl (Versed 1 Mg/Ml) Confirm Administered Dose 2 mg .ROUTE .STK-MED ONE Stop: 03/10/18 09:37 Morphine Sulfate (Morphine) 4 mg IVPUSH ONETIME ONE Stop: 03/10/18 05:43 Last Admin: 03/10/18 05:57 Dose: 4 mg Ondansetron HCl (Zofran) 4 mg IVPUSH ONETIME ONE Stop: 03/10/18 05:43 Last Admin: 03/10/18 05:57 Dose: 4 mg Ondansetron HCl (Zofran) Confirm Administered Dose 4 mg .ROUTE .STK-MED ONE Stop: 03/10/18 09:42 Propofol (Diprivan 20 Ml) Confirm Administered Dose 200 mg .ROUTE .STK-MED ONE Stop: 03/10/18 09:37 Rocuronium [place] (Zemuron) Confirm Administered Dose 100 mg .ROUTE .STK-MED ONE Stop: 03/10/18 09:42 Succinylcholine Chloride (Quelicin) Confirm Administered Dose 200 mg .ROUTE .STK -MED ONE Stop: 03/10/18 09:42
[2018-03-10] MEDS ORDERED: Dexamethasone 4 MG/ML 5 ML MDV ONE (11:08)
[2018-03-10] MEDS ORDERED: Neostigmine Methylsulfate 1 MG/ML 5 ML Syringe ONE (11:25)
[2018-03-10] MEDS ORDERED: Glycopyrrolate 0.2 MG/ML SDV ONE (11:25)
--- NOTE | 2018-03-10 11:49 | PCM.OPNOTE ---
- General Post-Op/Procedure Note Date of Surgery/Procedure: 03/10/18 Operative Procedure(s): Laparoscopic appendectomy Findings: Grossly inflamed, enlarged and infected appendix. No perforation. Pre Op Diagnosis: Appendicitis Post-Op Diagnosis: same Anesthesia Technique: General ET Tube Primary Surgeon: Juana Quintanilla Fluid Replacement, Intraop: 1,200 Output, Urine Amount: 350 EBL in mLs: 10 Condition: Fair
[2018-03-10] MEDS ORDERED: fentaNYL 100 MCG/2 ML SDV ONE (12:06)
[2018-03-10] MEDS: fentaNYL 100 MCG/2 ML SDV IVPUSH PRN ×2 (12:06→12:14)
--- NOTE | 2018-03-10 12:33 | PCM.POSTAN ---
POST ANESTHESIA ASSESSMENT - MENTAL STATUS Mental Status: Alert, Oriented - VITAL SIGNS Pulse Rate: 88 SaO2: 96 Resp Rate: 20 Blood Pressure: 134/72 Temperature: 37.0 F - RESPIRATORY Respiratory Status: Respiratory Rate WNL, Airway Patent, O2 Saturation Stable - CARDIOVASCULAR CV Status: Pulse Rate WNL, Blood Pressure Stable - GASTROINTESTINAL GI Status: No Symptoms - PAIN Pain Score: 5 (IV Fentanyl given per RN) - POST OP HYDRATION Hydration Status: Adequate & Stable
--- NOTE | 2018-03-10 12:49 | OR ---
SURGEON: MAMTA MARTINEZ MD DATE OF PROCEDURE: 03/10/2018 PREOPERATIVE DIAGNOSIS: Acute appendicitis. POSTOPERATIVE DIAGNOSIS: Acute appendicitis. PROCEDURE PERFORMED: Laparoscopic appendectomy. ANESTHESIA: General endotracheal anesthesia. FLUIDS: 1200 mL of crystalloid. ESTIMATED BLOOD LOSS: 10 mL. URINE OUTPUT: 350 mL. FINDINGS: Acutely inflamed and enlarged appendix, not perforated. COMPLICATIONS: None. INDICATIONS: The patient is a 27-year-old male, who presented last evening to the emergency room with generalized abdominal pain. CT at that time showed multiple appendicular of the appendix, but no evidence of any acute inflammation. The patient was given the option of staying in the hospital from closer monitoring or going home. He went home; however, then overnight developed sharp right lower quadrant pain, nausea, and malaise. He re-presented to the emergency room. Recheck of his white blood cell of his white count revealed a leukocytosis of 13,900. On physical exam, he had right lower quadrant tenderness, rebound, and guarding. The patient most likely has acute appendicitis. I discussed the need for an appendectomy. We discussed laparoscopic and open approaches. I explained that I would attempt this laparoscopically, but should I be unable to perform it safely, I will convert to open. We discussed the expected perioperative course and the risks including bleeding, infection, or damage to surrounding structures. The patient verbalized understanding and wishes to proceed. PROCEDURE IN DETAIL: The patient was brought into the OR and placed on the OR table in supine position. A time-out was completed verifying the patient's name, age, date of , allergies, and procedure to be performed. General endotracheal anesthesia was induced. The left arm was tucked at the patient's side and a Joseph catheter placed. The abdomen was prepped and draped in usual standard fashion. I anesthetized an area 2 fingerbreadths below the left subcostal margin along the midclavicular line with 0.5% Marcaine plain. A 1 cm incision was made in this area using an 11 blade. A 5 mm optical trocar was used to gain entry into the abdomen in the left upper quadrant. All layers of the abdominal wall were visualized upon entry. The abdomen was insufflated. I inserted a 5 mm 30-degree scope in and inspected the area under my initial trocar placement. No damage to surrounding structures was noted. A 5 mm trocar was placed under direct visualization just left and lateral to the umbilicus. I then placed a 12 mm trocar in the left lower quadrant under direct visualization as well. The patient was placed into Trendelenburg position and airplaned slightly to the left. I turned my attention to the right lower quadrant. An inflamed and enlarged appendix was tented up by the patient's omentum and clearly visible. I grasped the appendix and gently swept down the omental attachments. I then took a Harmonic Scalpel, began to dissect down along the border of the appendix and the appendiceal mesentery from distal to proximal. As I got more proximal, I then began to notice more adhesions of the appendix to the surrounding structures. A Ada was used to dissect around the appendix; however, it appeared to be adhered both to the ileocecal fat pad and the retroperitoneum. Using the Harmonic, I took down the retroperitoneal attachments of the cecum to allow more mobilization and better visualization of the appendix. Once this was performed, I could better identify my surrounding structures. I was able to clear the attachments of the appendix to surrounding structures. I continued my dissection along the appendiceal mesentery and the appendix wall. Once the appendix was completely freed from the appendiceal mesentery, I again carefully assessed the base my appendix. It did not appear to be inflamed or involved. I could see the tinea inserting just proximal to the base of the appendix and identified the insertion point of my terminal ileum. An endoscopic stapling device was then used to staple and transect across the base of the appendix using a 45 mm blue load of gallo. The appendix was then placed into an EndoCatch bag and removed through the 12 mm port site. I copiously irrigated my operative field with 1 L of normal saline and suctioned this out. Upon inspection of my operative field, it was hemostatic and the staple line appeared intact. I closed the 12 mm port site with an interrupted 0 Vicryl suture and a Ezequiel-Braulio device. The 5 mm trocars were removed under direct visualization and the abdomen allowed to desufflate. The 12 mm port site was closed with interrupted 3-0 Vicryl in the subcutaneous fat and the skin was closed with interrupted 4-0 Monocryl sutures. The 5 mm trocars were closed with interrupted 4-0 Monocryl sutures. Steri- Strips and sterile dressings were applied. The patient was transferred to the PACU in stable condition. IVET MESA /[id number] MTDBrandon
[2018-03-10] MEDS: Acetaminophen/oxyCODONE 325-5 MG Tab PO PRN ×2 (14:50→20:18)
[2018-03-10] MEDS: Piperacillin/Tazobactam 3.375 GM in Sodium Chloride 0.9% 50 ML IV SCH ×2 (14:52→20:20)
[2018-03-11] MEDS: Acetaminophen/oxyCODONE 325-5 MG Tab PO PRN ×3 (00:18→08:28)
[2018-03-11] MEDS: Piperacillin/Tazobactam 3.375 GM in Sodium Chloride 0.9% 50 ML IV SCH ×2 (03:40→08:29)
[2018-03-11] MEDS: HYDROmorphone 1 MG/ML Syringe IVPUSH PRN (03:45)
--- NOTE | 2018-03-11 08:41 | PCM48HPAN ---
Post Anesthesia Note - EVALUATION WITHIN 48HRS OF ANESTHETIC Vital Signs in Normal Range: Yes Patient Participated in Evaluation: Yes Respiratory Function Stable: Yes Airway Patent: Yes Cardiovascular Function Stable: Yes Hydration Status Stable: Yes Pain Control Satisfactory: No (Pt. just awakening, but with pain. Slept well otherwise.) Nausea and Vomiting Control Satisfactory: Yes Mental Status Recovered: Yes Pulse Rate: 88 Resp Rate: 16 Temperature: 37.0 F Blood Pressure: 134/72
--- NOTE | 2018-03-11 10:17 | PCM.SURGPN ---
- General Info Date of Service: 03/11/18 Date of Surgery/Procedure: 03/10/18 POD#: 1 Functional Status: Reports: Pain Controlled, Tolerating Diet, Ambulating, Urinating - Review of Systems General: Reports: No Symptoms Pulmonary: Reports: No Symptoms Cardiovascular: Reports: No Symptoms Gastrointestinal: Reports: No Symptoms - Patient Data Vitals - Most Recent: Last Vital Signs Temp 2.8 C L 03/11/18 08:40 Pulse 88 03/11/18 08:40 Resp 16 03/11/18 08:40 BP 134/72 03/11/18 08:40 Pulse Ox 96 03/11/18 08:00 Weight - Most Recent: 82.27 kg I&O - Last 24 Hours: Intake & Output 03/10/18 03/11/18 03/11/18 22:59 06:59 14:59 Intake Total 1070 1900 Output Total 575 1200 Balance 495 700 Med Orders - Current: Current Medications Discontinued Medications Bupivacaine HCl (Marcaine 0.5%) Confirm Administered Dose 30 ml .ROUTE .STK-MED ONE Stop: 03/10/18 09:41 Dexamethasone (Dexamethasone) Confirm Administered Dose 20 mg .ROUTE .STK-MED ONE Stop: 03/10/18 11:09 Fentanyl (Sublimaze) Confirm Administered Dose 250 mcg .ROUTE .STK-MED ONE Stop: 03/10/18 09:37 Fentanyl (Sublimaze) Confirm Administered Dose 100 mcg .ROUTE .STK-MED ONE Stop: 03/10/18 12:07 Last Admin: 03/10/18 13:01 Dose: Not Given Fentanyl (Sublimaze) 50 mcg IVPUSH Q5M PRN PRN Reason: Pain Last Admin: 03/10/18 12:14 Dose: 50 mcg Glycopyrrolate (Robinul) Confirm Administered Dose 0.4 mg .ROUTE .STK-MED ONE Stop: 03/10/18 11:26 Hydromorphone HCl (Dilaudid) 1 mg IVPUSH ONETIME ONE Stop: 03/10/18 06:48 Last Admin: 03/10/18 06:52 Dose: 1 mg Hydromorphone HCl (Dilaudid) 0.5 mg IVPUSH Q1H PRN PRN Reason: Pain Last Admin: 03/11/18 03:45 Dose: 0.5 mg Sodium Chloride (Normal Saline) 1,000 mls @ 999 mls/hr IV STAT ONE Stop: 03/10/18 06:42 Last Admin: 03/10/18 05:50 Dose: 999 mls/hr Lactated Ringer's (Ringers, Lactated) 1,000 mls @ 125 mls/hr IV ASDIRECTED [facility] Last Admin: 03/10/18 15:29 Dose: 125 mls/hr Piperacillin Sod/Tazobactam (Sod 3.375 gm/ Sodium Chloride) 50 mls @ 100 mls/ hr IV ONETIME ONE Stop: 03/10/18 06:51 Last Admin: 03/10/18 06:39 Dose: 100 mls/hr Lidocaine HCl (Xylocaine-Mpf 1%) Confirm Administered Dose 5 mls @ as directed .ROUTE .STK-MED ONE Stop: 03/10/18 09:43 Piperacillin Sod/Tazobactam (Sod 3.375 gm/ Sodium Chloride) 50 mls @ 100 mls/ hr IV ONETIME ONE Stop: 03/10/18 15:29 Piperacillin Sod/Tazobactam (Sod 3.375 gm/ Sodium Chloride) 50 mls @ 100 mls/ hr IV Q6H [facility] Last Admin: 03/11/18 08:29 Dose: 100 mls/hr Ketorolac Tromethamine (Toradol) 30 mg IVPUSH ONETIME ONE Stop: 03/10/18 05:43 Last Admin: 03/10/18 05:57 Dose: 30 mg Midazolam HCl (Versed 1 Mg/Ml) Confirm Administered Dose 2 mg .ROUTE .STK-MED ONE Stop: 03/10/18 09:37 Morphine Sulfate (Morphine) 4 mg IVPUSH ONETIME ONE Stop: 03/10/18 05:43 Last Admin: 03/10/18 05:57 Dose: 4 mg Neostigmine Methylsulfate (Neostigmine) Confirm Administered Dose 5 mg .ROUTE .STK-MED ONE Stop: 03/10/18 11:26 Ondansetron HCl (Zofran) 4 mg IVPUSH ONETIME ONE Stop: 03/10/18 05:43 Last Admin: 03/10/18 05:57 Dose: 4 mg Ondansetron HCl (Zofran) 4 mg IVPUSH Q6H PRN PRN Reason: Nausea/Vomiting Ondansetron HCl (Zofran) Confirm Administered Dose 4 mg .ROUTE .STK-MED ONE Stop: 03/10/18 09:42 Oxycodone/Acetaminophen (Percocet 325-5 Mg) 2 tab PO Q4H PRN PRN Reason: Abdominal Pain Last Admin: 03/11/18 08:28 Dose: 2 tab Propofol (Diprivan 20 Ml) Confirm Administered Dose 200 mg .ROUTE .STK-MED ONE Stop: 03/10/18 09:37 Rocuronium [place] (Zemuron) Confirm Administered Dose 100 mg .ROUTE .STK-MED ONE Stop: 03/10/18 09:42 Sodium Chloride (Saline Flush) 10 ml FLUSH ASDIRECTED PRN PRN Reason: Keep Vein Open Sodium Chloride (Saline Flush) 2.5 ml FLUSH ASDIRECTED PRN PRN Reason: Keep Vein Open Succinylcholine Chloride (Quelicin) Confirm Administered Dose 200 mg .ROUTE .STK -MED ONE Stop: 03/10/18 09:42 - Exam Wound/Incisions: Healing Well, Drainage General: Alert, Oriented HEENT: Pupils Equal Neck: Supple Lungs: Normal Respiratory Effort Cardiovascular: Regular Rate GI/Abdominal Exam: Soft, Non-Tender, No Distention, No Mass - Problem List & Annotations (1) Appendicitis SNOMED Code(s): 85689395 Code(s): K37 - UNSPECIFIED APPENDICITIS Status: Acute Qualifiers: Appendicitis type: unspecified Qualified Code(s): K37 - Unspecified appendicitis - Problem List Review Problem List Initiated/Reviewed/Updated: Yes - My Orders Last 24 Hours: Active Orders 24 hr Category Date Time Status Ready for Discharge [RC] PER UNIT ROUTINE Care 03/11/18 09:02 Active - Assessment Assessment (Free Text/Narrative):: Patient had abdominal pain this morning upon waking up however after receiving Percocet his pain was controlled. I expressed to him the importance of scheduling his pain medication at regular intervals especially right after surgery. He was able to eat something this morning and has been taking in adequate by mouth. His vital signs were stable overnight. The patient is cleared for discharge. He'll follow-up in clinic in 2 weeks.
== END 2018-03-11 09:45 | disposition home or self-care (01) ==
LOC: MW.ED 05:32 → MW.MS 06:22
PROVIDERS: ADMIT Surgery; ATTEND Surgery
DX: K35.80 Unspecified acute appendicitis (principal); Z88.6 Allergy status to analgesic agent; Z91.048 Other nonmedicinal substance allergy status
CPT/HCPCS: 44970; 80053; 83605; 83690; 85025; 86677; 88304; 90686; 96361; 96365; 96375; 99285; A9270; J0330; J1100; J1170; J1885; J2250; J2270; J2405; J2543; J2704; J3010; J3490; J7040; J7050; J7120

== ENCOUNTER 2019-12-25 15:11 | Emergency (ER) | payer SELFPAY ==
--- NOTE | 2019-12-25 15:16 | EDM.PDOC ---
ED HPI GENERAL MEDICAL PROBLEM - General Chief Complaint: Drug or Alcohol Abuse Stated Complaint: WITHDRAWALS FENTANYL Time Seen by Provider: 12/25/19 15:14 Source of Information: Reports: Patient History Limitations: Reports: No Limitations - History of Present Illness INITIAL COMMENTS - FREE TEXT/NARRATIVE: 29-year-old male presents with opiate withdrawal. He has been using fentanyl purchased from the street for over the last 3 months, he snorts about 2 g/day but his last use was 4 days ago. Today he admits to feeling nauseous, vomiting, diffuse myalgia, shakes, agitated, blurry vision. He has not eaten food for the last couple days. He tried taking Suboxone few days ago with no relief. ROS: A 10-point review of systems, other than pertinent positives and negatives as stated per HPI, is otherwise negative PHYSICAL EXAM General: AOx4, GCS = 15, No distress HEENT: dry mucous membrane Skin: Dry Neck: supple, no meningismus, no Kernig or Brudzinski Cardiac: S1S2 RRR no tachycardia Respiratory: CTAB, no crackles or rales, no wheezing Abdomen: Soft, nontender, no rebound or guarding, nondistended, no pulsatile mass. Back: nontender Musculoskeletal: NVI distally, no deformity Neuro: No focal deficits, no tremors. - Related Data Allergies Allergy/AdvReac Type Severity Reaction Status Date / Time ibuprofen Allergy Swelling Verified 03/09/18 18:27 soda pamela Allergy Hives Uncoded 03/10/18 05:44 Home Meds: Home Meds cloNIDine [Catapres] 0.1 mg PO DAILY #3 tab 12/25/19 [Rx] Past Medical History - Past Health History Medical/Surgical History: Denies Medical/Surgical History HEENT History: Reports: None Cardiovascular History: Reports: None Respiratory History: Reports: None Other Respiratory History: recent occasional episodes of SOB and coughing but never diagnosed with any respiratory issues Gastrointestinal History: Reports: None Genitourinary History: Reports: None Musculoskeletal History: Reports: None Neurological History: Reports: None Psychiatric History: Reports: None Endocrine/Metabolic History: Reports: None Hematologic History: Reports: None Immunologic History: Reports: None Oncologic (Cancer) History: Reports: None Dermatologic History: Reports: None - Infectious Disease History Infectious Disease History: Reports: Chicken Pox - Past Surgical History Head Surgeries/Procedures: Reports: None Social & Family History - Family History Family Medical History: Noncontributory - Caffeine Use Caffeine Use: Reports: Coffee, Energy Drinks ED ROS GENERAL - Review of Systems Review Of Systems: Comprehensive ROS is negative, except as noted in HPI. ED EXAM, GENERAL - Physical Exam Exam: See Below Course - Orders/Labs/Meds Orders: Active Orders 24 hr Category Date Time Status CBC WITH AUTO DIFF [HEME] Stat Lab 12/25/19 15:15 Ordered COMPREHENSIVE METABOLIC PN,CMP [CHEM] Stat Lab 12/25/19 15:15 Ordered - Re-Assessments/Exams Free Text/Narrative Re-Assessment/Exam: 12/25/19 15:15 After treatments and a prolonged observation period in the ER, the patient improved clinically and is stable for discharge. I performed a repeat examination and the patient has not demonstrated any new abnormal findings. Patient exhibits normal vital signs and has exhibited a normal gait. He will be discharged with a short course of clonidine 0.1 mg for 3 days. I advised the patient to return to the ER for reevaluation if symptoms worsened, and to follow up with their PCP within 2-3 days. MEDICAL DECISION MAKING: I reviewed the patients past medical records, lab and radiographic findings. I discussed the case with the patient. My differential diagnosis included: Opiate withdrawal, electrolyte abnormality, hypoglycemia. Patient's COWS score for opiate withdrawal = 4, which is low and suggest that he is not in active withdrawal. He is stable for outpatient follow-up with [facility] for detox [facility]. Departure - Departure Time of Disposition: 15:41 Disposition: Home, Self-Care 01 Condition: Good Clinical Impression: Withdrawal from opioids - Discharge Information *PRESCRIPTION DRUG MONITORING PROGRAM REVIEWED*: Not Applicable *COPY OF PRESCRIPTION DRUG MONITORING REPORT IN PATIENT LEANNA: Not Applicable Prescriptions: cloNIDine [Catapres] 0.1 mg PO DAILY #3 tab Instructions: Opioid Withdrawal Treatment, Finding Treatment for Addiction Referrals: PCP,None [Primary Care Provider] - Forms: ED Department Discharge Additional Instructions: The following information is given to patients seen in the emergency department who are being discharged to home. This information is to outline your options for follow-up care. We provide all patients seen in our emergency department with a follow-up referral. The need for follow-up, as well as the timing and circumstances, are variable depending upon the specifics of your emergency department visit. If you don't have a primary care physician on staff, we will provide you with a referral. We always advise you to contact your personal physician following an emergency department visit to inform them of the circumstance of the visit and for follow-up with them and/or the need for any referrals to a consulting specialist. The emergency department will also refer you to a specialist when appropriate. This referral assures that you have the opportunity for follow-up care with a specialist. All of these measure are taken in an effort to provide you with optimal care, which includes your follow-up. Under all circumstances we always encourage you to contact your private physician who remains a resource for coordinating your care. When calling for follow-up care, please make the office aware that this follow-up is from your recent emergency room visit. If for any reason you are refused follow-up, please contact the [facility] at and asked to speak to the emergency department charge nurse. If you do not have a primary care doctor, please follow up with the clinics below within 3-5 days. [facility] [address] [place] [phone] [address] - My Orders Last 24 Hours: My Active Orders 12/25/19 15:15 CBC WITH AUTO DIFF [HEME] Stat COMPREHENSIVE METABOLIC PN,CMP [CHEM] Stat - Assessment/Plan Last 24 Hours: My Active Orders 12/25/19 15:15 CBC WITH AUTO DIFF [HEME] Stat COMPREHENSIVE METABOLIC PN,CMP [CHEM] Stat
== END 2019-12-25 16:20 | disposition home or self-care (01) ==
LOC: MW.ED 15:11
DX: F11.23 Opioid dependence with withdrawal (principal); Z88.6 Allergy status to analgesic agent; Z91.048 Other nonmedicinal substance allergy status; Z79.899 Other long term (current) drug therapy
CPT/HCPCS: 82962; 99283; 99284